=== PATIENT | male | born 1970 | race Caucasian/White ===

== ENCOUNTER 2019-09-24 22:27 | Inpatient (IN) ==
[2019-09-24] MEDS ORDERED: *HR* LORazepam 2 MG/ML VIAL IVP ONE ×2 (22:39→23:53)
[2019-09-24] MEDS ORDERED: 0.9 % Sodium Chloride 1,000 ML IVC ONE (22:40)
[2019-09-24 23:05] LABS: Basophils # 0.1 K/mcL (0.0-0.2); Basophils % 0.5 %; Hematocrit 46.9 % (37.5-50.1); Hemoglobin 16.7 g/dL (12.9-16.9); Immature Granulocytes % 0.3 % (0-4); Lymphocytes # 1.3 K/mcL (0.6-4.6); Lymphocytes % 13.7 %; Mean Corpuscular HGB Conc 35.6 g/dL (31.6-35.5); Mean Corpuscular Hemoglobin 32.9 pg (28.0-33.3); Mean Corpuscular Volume 92.3 fL (83.0-100.0); Mean Platelet Volume 8.6 fL (9.4-12.4); Monocytes # 0.6 K/mcL (0.0-1.3); Monocytes % 6.2 %; Neutrophils # 7.4 K/mcL (1.6-8.9); Platelet Count 214 K/mcL (140-400); Red Blood Count 5.08 M/mcL (4.19-5.50); Red Cell Distribution Width 12.5 % (11.5-14.5); Segmented Neutrophils % 79.3 %; White Blood Count 9.3 K/mcL (4.3-11.1)
[2019-09-24 23:27] LABS: Acetaminophen < 10 mcg/mL (10-20); Alanine Aminotransferase 36 Units/L (7-52); Albumin 4.4 g/dL (3.5-5.7); Albumin/Globulin Ratio 1.2 (1.1-2.2); Alkaline Phosphatase 79 Units/L (34-104); Aspartate Amino Transferase 64 Units/L (13-39); BUN/Creatinine Ratio 17 (6-26); Bilirubin,Direct 0.3 mg/dL (0.0-0.2); Bilirubin,Indirect 1.1 mg/dL (0.0-1.0); Bilirubin,Total 1.4 mg/dL (0.3-1.0); Blood Urea Nitrogen 15 mg/dL (6-20); Calcium 10.1 mg/dL (8.6-10.3); Carbon Dioxide 20 mEq/L (23-29); Chloride 101 mEq/L (98-107); Ethanol 153 mg/dL (Less than 10); Globulin 3.7 g/dL (2.4-3.5); Glucose 143 mg/dL (70-105); Lipase 63 Units/L (11-82); Osmolality,Calculated 283 (280-300); Potassium 3.5 mEq/L (3.5-5.1); Salicylate < 2.5 mg/dL (15.0-30.0); Sodium 135 mEq/L (136-145); Total Protein 8.1 g/dL (6.4-8.9); Troponin I < 0.03 ng/mL (< 0.04); eGFR For African Americans > 60 (> 60); eGFR For Non-African Americans > 60 (> 60)
[2019-09-24] MEDS ORDERED: GI Cocktail 40 ML EACH PO ONE (23:54)
[2019-09-25] MEDS ORDERED: Pantoprazole 40 MG VIAL IVP SCH (03:03)
[2019-09-25] MEDS: *HR* LORazepam 2 MG/ML VIAL IVP PRN ×6 (03:09→22:57)
[2019-09-25] MEDS ORDERED: Naloxone 0.4 MG/ML INJ IVP PRN (04:00)
[2019-09-25 06:03] LABS: Hematocrit 39.7 % (37.5-50.1); Mean Platelet Volume 8.8 fL (9.4-12.4); Red Cell Distribution Width 12.4 % (11.5-14.5)
[2019-09-25 06:04] LABS: Hemoglobin 14.4 g/dL (12.9-16.9); Mean Corpuscular HGB Conc 36.3 g/dL (31.6-35.5); Mean Corpuscular Volume 90.8 fL (83.0-100.0); Platelet Count 142 K/mcL (140-400); Red Blood Count 4.37 M/mcL (4.19-5.50); White Blood Count 7.9 K/mcL (4.3-11.1)
[2019-09-25 06:12] LABS: Prothrombin Time 11.3 Seconds (9.4-12.1)
[2019-09-25 06:24] LABS: Albumin 3.8 g/dL (3.5-5.7); Albumin/Globulin Ratio 1.4 (1.1-2.2); Bilirubin,Direct 0.2 mg/dL (0.0-0.2); Bilirubin,Indirect 1.1 mg/dL (0.0-1.0); Bilirubin,Total 1.3 mg/dL (0.3-1.0); Globulin 2.8 g/dL (2.4-3.5); Total Protein 6.6 g/dL (6.4-8.9)
[2019-09-25 06:25] LABS: Magnesium 1.8 mg/dL (1.6-2.6); Phosphorous 3.2 mg/dL (2.7-4.5)
[2019-09-25 06:26] LABS: BUN/Creatinine Ratio 21 (6-26); Blood Urea Nitrogen 17 mg/dL (6-20); Calcium 9.2 mg/dL (8.6-10.3); Carbon Dioxide 28 mEq/L (23-29); Chloride 97 mEq/L (98-107); Glucose 107 mg/dL (70-105); Osmolality,Calculated 286 (280-300); Potassium 3.2 mEq/L (3.5-5.1); Sodium 137 mEq/L (136-145); eGFR For African Americans > 60 (> 60); eGFR For Non-African Americans > 60 (> 60)
[2019-09-25] MEDS: 0.9 % Sodium Chloride 1,000 ML IVC SCH ×2 (08:05→10:22)
[2019-09-25 15:09] LABS: Amphetamine Screen,Urine Negative ng/mL (Cutoff=1000); Barbiturate Screen,Urine Negative ng/mL (Cutoff=200); Benzodiazepines Screen,Urine Negative ng/mL (Cutoff=200); Cannabinoid Screen,Urine Negative ng/mL (Cutoff = 50); Cocaine Screen,Urine Negative ng/mL (Cutoff= 300); Opiate Screen,Urine Negative ng/mL (Cutoff=300); Phencyclidine Screen,Urine Negative ng/mL (Cutoff=25)
[2019-09-25] MEDS: *HR* Labetalol 20 MG/4 ML SYRINGE IVP PRN (16:28)
[2019-09-25] MEDS ORDERED: Thiamine (B-1) 100 MG, Folic Acid 1 MG, MVI, adult with vitamin K 10 ML in 0.9 % Sodi... IVPB SCH (18:00)
[2019-09-25] MEDS ORDERED: Melatonin 3 MG TABLET PO SCH (21:00)
[2019-09-26] MEDS: *HR* LORazepam 2 MG/ML VIAL IVP PRN ×3 (00:07→08:21)
[2019-09-26] MEDS: *HR* Labetalol 20 MG/4 ML SYRINGE IVP PRN (02:24)
[2019-09-26] MEDS ORDERED: *HR* Labetalol 20 MG/4 ML SYRINGE IVP ONE (03:26)
[2019-09-26 04:48] VITALS: BP 145/101
[2019-09-26 05:40] LABS: Alanine Aminotransferase 29 Units/L (7-52); Albumin 3.7 g/dL (3.5-5.7); Albumin/Globulin Ratio 1.4 (1.1-2.2); Alkaline Phosphatase 64 Units/L (34-104); Aspartate Amino Transferase 53 Units/L (13-39); BUN/Creatinine Ratio 12 (6-26); Bilirubin,Total 1.8 mg/dL (0.3-1.0); Blood Urea Nitrogen 10 mg/dL (6-20); Calcium 8.4 mg/dL (8.6-10.3); Carbon Dioxide 23 mEq/L (23-29); Chloride 104 mEq/L (98-107); Globulin 2.6 g/dL (2.4-3.5); Glucose 93 mg/dL (70-105); Osmolality,Calculated 287 (280-300); Potassium 3.3 mEq/L (3.5-5.1); Sodium 139 mEq/L (136-145); Total Protein 6.3 g/dL (6.4-8.9); eGFR For African Americans > 60 (> 60); eGFR For Non-African Americans > 60 (> 60)
[2019-09-26] MEDS ORDERED: amLODIPine 5 MG TABLET PO SCH (09:00)
[2019-09-26] MEDS ORDERED: FLUoxetine 20 MG CAPSULE PO SCH (09:00)
[2019-09-26] MEDS ORDERED: NON-FORMULARY MEDICATION 1 EACH EACH (Omega-3 Fatty Acids [Fish Oil] 300 MG) PO SCH (09:00)
[2019-09-26] MEDS ORDERED: Topiramate 100 MG TABLET PO SCH (09:00)
[2019-09-28] MEDS ORDERED: Folic Acid 1 MG TABLET PO SCH (09:00)
[2019-09-28] MEDS ORDERED: Vitamin B Complex/Vit C/Vit E 1 EACH TABLET PO SCH (09:00)
[2019-09-28] MEDS ORDERED: Thiamine (B-1) 100 MG TABLET PO SCH (09:00)
== END 2019-09-26 11:18 | disposition left against medical advice (07) | DRG 894 ==
LOC: 3ANU 22:27 → EMEROOARM 22:27 → SUATTDRO 09-25 00:50 → 3ANU 09-25 01:21
PROVIDERS: ADMIT Internal Medicine; ATTEND Internal Medicine

== ENCOUNTER 2020-01-16 22:20 | Observation (INO) ==
[2020-01-16 23:08] LABS: Basophils # 0.1 K/mcL (0.0-0.2); Basophils % 0.8 %; Eosinophils % 0.2 %; Hemoglobin 16.4 g/dL (12.9-16.9); Immature Granulocytes % 0.3 % (0-4); Lymphocytes # 2.4 K/mcL (0.6-4.6); Lymphocytes % 37.3 %; Mean Corpuscular HGB Conc 34.9 g/dL (31.6-35.5); Mean Corpuscular Hemoglobin 31.3 pg (28.0-33.3); Mean Corpuscular Volume 89.7 fL (83.0-100.0); Mean Platelet Volume 8.2 fL (9.4-12.4); Monocytes # 0.5 K/mcL (0.0-1.3); Monocytes % 7.5 %; Neutrophils # 3.5 K/mcL (1.6-8.9); Platelet Count 161 K/mcL (140-400); Red Blood Count 5.24 M/mcL (4.19-5.50); Red Cell Distribution Width 12.2 % (11.5-14.5); Segmented Neutrophils % 53.9 %; White Blood Count 6.5 K/mcL (4.3-11.1)
[2020-01-16 23:18] LABS: Acetaminophen < 10 mcg/mL (10-20); BUN/Creatinine Ratio 23 (6-26); Blood Urea Nitrogen 18 mg/dL (6-20); Calcium 8.9 mg/dL (8.6-10.3); Carbon Dioxide 19 mEq/L (23-29); Chloride 99 mEq/L (98-107); Ethanol 375 mg/dL (Less than 10); Glucose 80 mg/dL (70-105); Osmolality,Calculated 295 (280-300); Salicylate < 2.5 mg/dL (15.0-30.0); Sodium 142 mEq/L (136-145); eGFR For African Americans > 60 (> 60); eGFR For Non-African Americans > 60 (> 60)
[2020-01-17] MEDS ORDERED: *HR* LORazepam 1 MG TABLET PO ONE (02:01)
[2020-01-17] MEDS ORDERED: *HR* LORazepam 2 MG/ML VIAL IVP ONE (02:11)
[2020-01-17] MEDS ORDERED: Thiamine (B-1) 100 MG in 0.9 % Sodium Chloride 50 ML IVPB ONE (02:24)
[2020-01-17] MEDS ORDERED: 0.9 % Sodium Chloride 1,000 ML IVC ONE (02:24)
[2020-01-17 05:06] LABS: Basophils % 0.5 %; Eosinophils % 0.3 %; Hematocrit 43.3 % (37.5-50.1); Hemoglobin 15.3 g/dL (12.9-16.9); Immature Granulocytes % 0.3 % (0-4); Lymphocytes # 1.8 K/mcL (0.6-4.6); Lymphocytes % 28.2 %; Mean Corpuscular HGB Conc 35.3 g/dL (31.6-35.5); Mean Corpuscular Hemoglobin 31.6 pg (28.0-33.3); Mean Corpuscular Volume 89.5 fL (83.0-100.0); Mean Platelet Volume 8.6 fL (9.4-12.4); Monocytes # 0.7 K/mcL (0.0-1.3); Neutrophils # 3.9 K/mcL (1.6-8.9); Platelet Count 140 K/mcL (140-400); Red Blood Count 4.84 M/mcL (4.19-5.50); Segmented Neutrophils % 60.7 %; White Blood Count 6.5 K/mcL (4.3-11.1)
[2020-01-17 05:27] LABS: Alanine Aminotransferase 55 Units/L (7-52); Albumin/Globulin Ratio 1.4 (1.1-2.2); Alkaline Phosphatase 64 Units/L (34-104); Aspartate Amino Transferase 73 Units/L (13-39); BUN/Creatinine Ratio 26 (6-26); Bilirubin,Total 1.2 mg/dL (0.3-1.0); Blood Urea Nitrogen 25 mg/dL (6-20); Carbon Dioxide 19 mEq/L (23-29); Chloride 97 mEq/L (98-107); Ethanol 190 mg/dL (Less than 10); Globulin 2.8 g/dL (2.4-3.5); Glucose 327 mg/dL (70-105); Magnesium 1.7 mg/dL (1.6-2.6); Osmolality,Calculated 297 (280-300); Phosphorous 1.6 mg/dL (2.7-4.5); Potassium 3.6 mEq/L (3.5-5.1); Sodium 135 mEq/L (136-145); Total Protein 6.8 g/dL (6.4-8.9); eGFR For African Americans > 60 (> 60); eGFR For Non-African Americans > 60 (> 60)
[2020-01-17] MEDS: 0.9 % Sodium Chloride 1,000 ML IVC SCH ×2 (05:40→12:04)
[2020-01-17] MEDS: Ondansetron 4 MG/2 ML VIAL IVP PRN ×2 (05:43→15:15)
[2020-01-17] MEDS: *HR* LORazepam 2 MG/ML VIAL IVP PRN ×8 (06:04→23:51)
[2020-01-17] MEDS: *HR* Enoxaparin 40 MG/0.4 ML SYRINGE SQ SCH (08:14)
[2020-01-17] MEDS ORDERED: Thiamine (B-1) 100 MG, Folic Acid 1 MG, MVI, adult with vitamin K 10 ML in 0.9 % Sodi... IVPB SCH (18:00)
[2020-01-18 04:15] LABS: BUN/Creatinine Ratio 26 (6-26); Blood Urea Nitrogen 19 mg/dL (6-20); Calcium 8.9 mg/dL (8.6-10.3); Carbon Dioxide 31 mEq/L (23-29); Chloride 104 mEq/L (98-107); Glucose 79 mg/dL (70-105); Magnesium 1.6 mg/dL (1.6-2.6); Osmolality,Calculated 291 (280-300); Potassium 3.9 mEq/L (3.5-5.1); Sodium 140 mEq/L (136-145); eGFR For African Americans > 60 (> 60); eGFR For Non-African Americans > 60 (> 60)
[2020-01-18 07:26] VITALS: BP 146/99
[2020-01-18] MEDS: *HR* Enoxaparin 40 MG/0.4 ML SYRINGE SQ SCH (08:24)
[2020-01-18] MEDS: *HR* LORazepam 2 MG/ML VIAL IVP PRN (08:25)
[2020-01-20] MEDS ORDERED: Folic Acid 1 MG TABLET PO SCH (09:00)
== END 2020-01-18 11:35 | disposition home or self-care (01) ==
LOC: 2NNU 22:20 → EMEROOARM 22:20 → 2NNU 01-17 02:37
PROVIDERS: ADMIT Student in an Organized Health Care Education/Training Program; ATTEND Student in an Organized Health Care Education/Training Program

== ENCOUNTER 2020-04-23 21:41 | Observation (INO) ==
[2020-04-23] MEDS ORDERED: 0.9 % Sodium Chloride 1,000 ML IVC ONE (21:49)
[2020-04-23] MEDS ORDERED: Thiamine (B-1) 100 MG in 0.9 % Sodium Chloride 50 ML IVPB STA (21:49)
[2020-04-23 22:18] LABS: Basophils % 0.8 %; Eosinophils # 0.1 K/mcL (0.0-0.6); Eosinophils % 1.2 %; Hematocrit 42.1 % (37.5-50.1); Immature Granulocytes % 0.2 % (0-4); Lymphocytes # 2.7 K/mcL (0.6-4.6); Lymphocytes % 52.6 %; Mean Corpuscular HGB Conc 35.6 g/dL (31.6-35.5); Mean Corpuscular Hemoglobin 32.1 pg (28.0-33.3); Mean Platelet Volume 7.8 fL (9.4-12.4); Monocytes # 0.7 K/mcL (0.0-1.3); Monocytes % 12.9 %; Neutrophils # 1.7 K/mcL (1.6-8.9); Platelet Count 363 K/mcL (140-400); Red Blood Count 4.68 M/mcL (4.19-5.50); Red Cell Distribution Width 12.3 % (11.5-14.5); Segmented Neutrophils % 32.3 %; White Blood Count 5.1 K/mcL (4.3-11.1)
[2020-04-23 22:28] LABS: Bilirubin,Urine Negative (Negative); Blood,Urine Trace-lysed (Negative); Clarity,Urine Clear (Clear); Color,Urine Yellow (Yellow); Glucose,Urine (UA) Normal (Normal); Ketones,Urine 40 mg/dL (Negative); Leukocyte Esterase,Urine Negative (Negative); Nitrite,Urine Negative (Negative); PH,Urine 6.5 pH Units (5.0-8.0); Protein,Urine 30 mg/dL (Neg-Trace); Specific Gravity,Urine 1.015 (1.010-1.025); Urobilinogen,Urine Normal (Normal)
[2020-04-23 22:36] LABS: Alanine Aminotransferase 138 Units/L (7-52); Albumin 4.4 g/dL (3.5-5.7); Albumin/Globulin Ratio 1.5 (1.1-2.2); Alkaline Phosphatase 72 Units/L (34-104); Aspartate Amino Transferase 122 Units/L (13-39); BUN/Creatinine Ratio 16 (6-26); Bilirubin,Total 0.9 mg/dL (0.3-1.0); Blood Urea Nitrogen 14 mg/dL (6-20); Calcium 8.3 mg/dL (8.6-10.3); Carbon Dioxide 20 mEq/L (23-29); Chloride 101 mEq/L (98-107); Ethanol 419 mg/dL (Less than 10); Glucose 81 mg/dL (70-105); Osmolality,Calculated 292 (280-300); Potassium 3.9 mEq/L (3.5-5.1); Sodium 141 mEq/L (136-145); Total Protein 7.4 g/dL (6.4-8.9); eGFR For African Americans > 60 (> 60); eGFR For Non-African Americans > 60 (> 60)
[2020-04-23 22:38] LABS: Amphetamine Screen,Urine Negative ng/mL (Cutoff=1000); Barbiturate Screen,Urine Negative ng/mL (Cutoff=200); Benzodiazepines Screen,Urine Negative ng/mL (Cutoff=200); Cannabinoid Screen,Urine Negative ng/mL (Cutoff = 50); Cocaine Screen,Urine Negative ng/mL (Cutoff= 300); Opiate Screen,Urine Negative ng/mL (Cutoff=300); Phencyclidine Screen,Urine Negative ng/mL (Cutoff=25)
[2020-04-23] MEDS ORDERED: *HR* LORazepam 2 MG/ML VIAL IVP ONE (23:13)
[2020-04-24] MEDS ORDERED: *HR* LORazepam 2 MG/ML VIAL IVP PRN ×2 (01:40)
[2020-04-24] MEDS ORDERED: Acetaminophen/Aspirin/Caffeine TABLET PO PRN (04:44)
[2020-04-24] MEDS: BuPROPion XL (24 HR) 150 MG TABLET PO SCH (05:54)
[2020-04-24] MEDS: FLUoxetine 20 MG CAPSULE PO SCH (08:00)
[2020-04-24] MEDS: (Omega-3/Dha/Epa/Fish Oil [Fish Oil 1,000 Mg Softgel]) PO SCH (08:00)
[2020-04-24] MEDS: amLODIPine 5 MG TABLET PO SCH (08:00)
[2020-04-24] MEDS: Topiramate 25 MG TABLET PO SCH (08:00)
[2020-04-24] MEDS: hydroCHLOROthiazide 25 MG TABLET PO SCH (08:00)
[2020-04-24] MEDS: Multivit/Ca/Min/Fe/FA 1 TAB TABLET PO SCH (08:00)
[2020-04-24] MEDS: lisinopriL 10 MG TABLET PO SCH (08:00)
[2020-04-24] MEDS ORDERED: hydrOXYzine pamoate 25 MG CAPSULE PO PRN (09:17)
[2020-04-24] MEDS ORDERED: Thiamine (B-1) 100 MG, Folic Acid 1 MG, MVI, adult with vitamin K 10 ML in 0.9 % Sodi... IVPB SCH (18:00)
[2020-04-24] MEDS: *HR* LORazepam 2 MG/ML VIAL IVP PRN (18:59)
[2020-04-24] MEDS ORDERED: *HR* LORazepam 2 MG/ML VIAL IVP ONE (20:24)
[2020-04-24] MEDS ORDERED: Topiramate 100 MG TABLET PO SCH (21:00)
[2020-04-24] MEDS ORDERED: traZODone 50 MG TABLET PO SCH (21:00)
[2020-04-24] MEDS ORDERED: Melatonin 3 MG TABLET PO SCH (21:00)
[2020-04-25] MEDS: *HR* LORazepam 2 MG/ML VIAL IVP PRN ×2 (03:29→08:22)
[2020-04-25] MEDS: BuPROPion XL (24 HR) 150 MG TABLET PO SCH (05:26)
[2020-04-25] MEDS ORDERED: *HR* Heparin 5,000 UNIT/ML VIAL SQ SCH (06:00)
[2020-04-25] MEDS: lisinopriL 10 MG TABLET PO SCH (08:19)
[2020-04-25] MEDS: FLUoxetine 20 MG CAPSULE PO SCH (08:19)
[2020-04-25] MEDS: hydroCHLOROthiazide 25 MG TABLET PO SCH (08:19)
[2020-04-25] MEDS: Topiramate 25 MG TABLET PO SCH (08:20)
[2020-04-25] MEDS: amLODIPine 5 MG TABLET PO SCH (08:20)
[2020-04-25] MEDS: Multivit/Ca/Min/Fe/FA 1 TAB TABLET PO SCH (08:20)
[2020-04-25] MEDS: (Omega-3/Dha/Epa/Fish Oil [Fish Oil 1,000 Mg Softgel]) PO SCH (10:14)
[2020-04-25 10:44] VITALS: BP 127/86
== END 2020-04-25 13:24 | disposition other institution (70) ==
LOC: EMEROOARM 21:41 → 3BNU 21:41 → SUATTDRO 04-24 00:20 → 3BNU 04-24 00:38
PROVIDERS: ADMIT Internal Medicine; ATTEND Internal Medicine

== ENCOUNTER 2020-10-15 19:26 | Inpatient (IN) ==
[2020-10-15 20:24] LABS: Basophils % 0.3 %; Eosinophils % 0.2 %; Hemoglobin 12.4 g/dL (12.9-16.9); Immature Granulocytes % 0.2 % (0-4); Lymphocytes # 0.9 K/mcL (0.6-4.6); Mean Corpuscular HGB Conc 35.4 g/dL (31.6-35.5); Mean Corpuscular Hemoglobin 32.5 pg (28.0-33.3); Mean Corpuscular Volume 91.9 fL (83.0-100.0); Mean Platelet Volume 8.7 fL (9.4-12.4); Monocytes # 0.4 K/mcL (0.0-1.3); Monocytes % 6.2 %; Neutrophils # 4.6 K/mcL (1.6-8.9); Platelet Count 130 K/mcL (140-400); Red Blood Count 3.81 M/mcL (4.19-5.50); Red Cell Distribution Width 13.8 % (11.5-14.5); Segmented Neutrophils % 78.1 %; White Blood Count 5.9 K/mcL (4.3-11.1)
[2020-10-15 20:33] LABS: Prothrombin Time 11.3 Seconds (9.4-12.1)
[2020-10-15 20:46] LABS: Alanine Aminotransferase 155 Units/L (7-52); Albumin 3.8 g/dL (3.5-5.7); Albumin/Globulin Ratio 1.5 (1.1-2.2); Alkaline Phosphatase 63 Units/L (34-104); Aspartate Amino Transferase 141 Units/L (13-39); BUN/Creatinine Ratio 38 (6-26); Blood Urea Nitrogen 18 mg/dL (6-20); Calcium 8.2 mg/dL (8.6-10.3); Carbon Dioxide 23 mEq/L (23-29); Chloride 103 mEq/L (98-107); Ethanol 104 mg/dL (Less than 10); Globulin 2.6 g/dL (2.4-3.5); Glucose 104 mg/dL (70-105); Osmolality,Calculated 290 (280-300); Potassium 3.4 mEq/L (3.5-5.1); Sodium 139 mEq/L (136-145); Total Protein 6.4 g/dL (6.4-8.9); eGFR For African Americans > 60 (> 60); eGFR For Non-African Americans > 60 (> 60)
[2020-10-15] MEDS ORDERED: *HR* LORazepam 2 MG/ML VIAL IVP ONE (21:31)
[2020-10-15] MEDS ORDERED: Acetaminophen 325 MG TABLET PO PRN (21:38)
[2020-10-15] MEDS ORDERED: Naloxone 0.4 MG/ML INJ IVP PRN (21:38)
[2020-10-15] MEDS ORDERED: Ondansetron 4 MG/2 ML VIAL IVP PRN (21:38)
[2020-10-15] MEDS ORDERED: *HR* LORazepam 2 MG/ML VIAL IVP PRN ×2 (21:40)
[2020-10-16] MEDS: *HR* LORazepam 2 MG/ML VIAL IVP PRN ×3 (02:16→14:01)
[2020-10-16 06:54] LABS: Eosinophils % 0.2 %; Immature Granulocytes % 0.4 % (0-4); Mean Corpuscular Volume 90.9 fL (83.0-100.0); Red Cell Distribution Width 13.7 % (11.5-14.5)
[2020-10-16 06:56] LABS: Basophils % 0.6 %; Hematocrit 35.1 % (37.5-50.1); Hemoglobin 12.1 g/dL (12.9-16.9); Immature Platelets 1.6 % (1.1-6.1); Lymphocytes % 21.1 %; Mean Corpuscular HGB Conc 34.5 g/dL (31.6-35.5); Mean Corpuscular Hemoglobin 31.3 pg (28.0-33.3); Monocytes # 0.4 K/mcL (0.0-1.3); Monocytes % 8.6 %; Neutrophils # 3.3 K/mcL (1.6-8.9); Platelet Count 114 K/mcL (140-400); Red Blood Count 3.86 M/mcL (4.19-5.50); Segmented Neutrophils % 69.1 %; White Blood Count 4.7 K/mcL (4.3-11.1)
[2020-10-16 06:58] LABS: Prothrombin Time 11.5 Seconds (9.4-12.1)
[2020-10-16 07:00] LABS: Activated Partial Thrombo Time 27.3 Seconds (26.0-36.0)
[2020-10-16 07:36] LABS: Alanine Aminotransferase 132 Units/L (7-52); Albumin 3.7 g/dL (3.5-5.7); Albumin/Globulin Ratio 1.4 (1.1-2.2); Alkaline Phosphatase 61 Units/L (34-104); Aspartate Amino Transferase 118 Units/L (13-39); BUN/Creatinine Ratio 31 (6-26); Bilirubin,Total 1.9 mg/dL (0.3-1.0); Blood Urea Nitrogen 18 mg/dL (6-20); Calcium 9.1 mg/dL (8.6-10.3); Carbon Dioxide 28 mEq/L (23-29); Chloride 103 mEq/L (98-107); Globulin 2.6 g/dL (2.4-3.5); Glucose 84 mg/dL (70-105); Osmolality,Calculated 293 (280-300); Potassium 3.7 mEq/L (3.5-5.1); Sodium 141 mEq/L (136-145); Total Protein 6.3 g/dL (6.4-8.9); eGFR For African Americans > 60 (> 60); eGFR For Non-African Americans > 60 (> 60)
[2020-10-16] MEDS ORDERED: cefTRIAXone 2,000 MG in 0.9 % Sodium Chloride Mini Bag 100 ML IVPB SCH (08:00)
[2020-10-16] MEDS: cefTRIAXone 2,000 MG in Water for inj. (sterile) 20 ML IVP SCH (08:51)
[2020-10-16] MEDS: MetroNIDAZOLE 500 MG/100 ML 500 MG/100 ML BAG IVPB SCH ×2 (08:52→16:15)
[2020-10-16 15:54] LABS: % Iron Saturation 50 % (20-55); Iron 139 mcg/dL (65-175); Transferrin 199 mg/dL (203-362)
[2020-10-16 16:07] LABS: Ferritin 222 ng/mL (20-250)
[2020-10-16 16:25] LABS: Hepatitis B Surface Antigen Nonreactive (Nonreactive)
[2020-10-16 16:54] LABS: Hepatitis C Virus Antibody Nonreactive (Nonreactive)
[2020-10-16 16:55] LABS: Hepatitis B Core IgM Nonreactive (Nonreactive)
[2020-10-16 16:57] LABS: Hepatitis A Antibody IgM Nonreactive (Nonreactive)
[2020-10-16] MEDS ORDERED: SODIUM CHLORIDE/NAHCO3/KCL/PEG 4,000 ML SOLN.RECON PO ONE (17:00)
[2020-10-16] MEDS ORDERED: Thiamine (B-1) 100 MG, Folic Acid 1 MG, MVI, adult with vitamin K 10 ML in 0.9 % Sodi... IVPB SCH (18:00)
[2020-10-17] MEDS: lisinopriL 20 MG TABLET PO SCH ×2 (00:19→08:48)
[2020-10-17] MEDS: MetroNIDAZOLE 500 MG/100 ML 500 MG/100 ML BAG IVPB SCH ×2 (00:20→08:58)
[2020-10-17] MEDS: *HR* LORazepam 2 MG/ML VIAL IVP PRN ×2 (04:40→08:55)
[2020-10-17 06:22] LABS: Red Cell Distribution Width 13.8 % (11.5-14.5)
[2020-10-17 06:24] LABS: Hemoglobin 11.9 g/dL (12.9-16.9); Immature Platelets 2.5 % (1.1-6.1); Mean Corpuscular Volume 91.1 fL (83.0-100.0); Mean Platelet Volume 9.3 fL (9.4-12.4); Red Blood Count 3.84 M/mcL (4.19-5.50); White Blood Count 4.8 K/mcL (4.3-11.1)
[2020-10-17 06:43] LABS: BUN/Creatinine Ratio 15 (6-26); Blood Urea Nitrogen 9 mg/dL (6-20); Calcium 8.8 mg/dL (8.6-10.3); Carbon Dioxide 25 mEq/L (23-29); Chloride 107 mEq/L (98-107); Glucose 80 mg/dL (70-105); Osmolality,Calculated 286 (280-300); Potassium 3.6 mEq/L (3.5-5.1); Sodium 139 mEq/L (136-145); eGFR For African Americans > 60 (> 60); eGFR For Non-African Americans > 60 (> 60)
[2020-10-17] MEDS: Topiramate 25 MG TABLET PO SCH (08:48)
[2020-10-17] MEDS: FLUoxetine 20 MG CAPSULE PO SCH (08:48)
[2020-10-17] MEDS: cefTRIAXone 2,000 MG in Water for inj. (sterile) 20 ML IVP SCH (08:56)
[2020-10-17] MEDS ORDERED: Lidocaine -MPF 2% 5 ML VIAL SQ ONE (11:25)
[2020-10-17] MEDS ORDERED: *HR* Propofol 500 MG/50 ML BOTTLE IVP ONE (11:25)
[2020-10-17] MEDS ORDERED: *HR* Propofol 200 MG/20 ML VIAL IVP ONE (11:25)
[2020-10-17] MEDS ORDERED: *HR* Midazolam HCl 5 MG/5 ML VIAL IVP ONE ×2 (13:10→13:11)
[2020-10-17] MEDS ORDERED: traZODone 50 MG TABLET PO SCH (21:00)
[2020-10-17] MEDS ORDERED: Topiramate 100 MG TABLET PO SCH (21:00)
[2020-10-18] MEDS: *HR* LORazepam 2 MG/ML VIAL IVP PRN ×2 (04:10→08:52)
[2020-10-18 05:36] LABS: Hemoglobin 12.6 g/dL (12.9-16.9); Mean Corpuscular Hemoglobin 32.3 pg (28.0-33.3); Mean Corpuscular Volume 92.3 fL (83.0-100.0); Mean Platelet Volume 9.8 fL (9.4-12.4); Platelet Count 104 K/mcL (140-400); White Blood Count 3.6 K/mcL (4.3-11.1)
[2020-10-18 06:56] VITALS: BP 133/85
[2020-10-18] MEDS: lisinopriL 20 MG TABLET PO SCH (08:38)
[2020-10-18] MEDS: FLUoxetine 20 MG CAPSULE PO SCH (08:39)
[2020-10-18] MEDS: Topiramate 25 MG TABLET PO SCH (08:39)
[2020-10-18] MEDS ORDERED: Thiamine (B-1) 100 MG TABLET PO SCH (09:00)
[2020-10-18] MEDS ORDERED: Folic Acid 1 MG TABLET PO SCH (09:00)
[2020-10-19 12:48] LABS: AFP Tumor Marker Non-Pregnant 3 ng/mL (0-9)
[2020-10-19 12:49] LABS: Serine Protease-3 Antibody 6 AU/mL (0-19)
[2020-10-20 00:53] LABS: ANA IgG by ELISA NONE DETECTED (None Detected); F-Actin (sm muscle) Ab IgG 9 Units (0-19)
== END 2020-10-18 11:26 | disposition home or self-care (01) | DRG 379 ==
LOC: 3BNU 19:26 → EMEROOARM 19:26 → 3BNU 22:53
PROVIDERS: ADMIT Family Medicine; ATTEND Family Medicine

== ENCOUNTER 2020-11-21 11:23 | Inpatient (IN) ==
[2020-11-21] MEDS ORDERED: 0.9 % Sodium Chloride 1,000 ML IVC ONE (11:36)
[2020-11-21] MEDS ORDERED: Ondansetron 4 MG/2 ML VIAL IVP ONE (11:36)
[2020-11-21] MEDS ORDERED: *HR* LORazepam 2 MG/ML VIAL IVP ONE ×2 (11:37→14:31)
[2020-11-21] MEDS ORDERED: Isovue-370 500 ML BOTTLE IVP ONE (11:59)
[2020-11-21] MEDS: Thiamine (B-1) 100 MG TABLET PO SCH (12:10)
[2020-11-21] MEDS: Multivit/Ca/Min/Fe/FA 1 TAB TABLET PO SCH (12:10)
[2020-11-21 12:26] LABS: Hematocrit 39.5 % (37.5-50.1); Hemoglobin 13.7 g/dL (12.9-16.9); Mean Corpuscular HGB Conc 34.7 g/dL (31.6-35.5); Red Cell Distribution Width 12.9 % (11.5-14.5)
[2020-11-21 12:27] LABS: Basophils % 0.6 %; Eosinophils % 0.3 %; Immature Granulocytes % 0.6 % (0-4); Immature Platelets 2.2 % (1.1-6.1); Lymphocytes # 0.6 K/mcL (0.6-4.6); Mean Corpuscular Hemoglobin 32.2 pg (28.0-33.3); Mean Corpuscular Volume 92.9 fL (83.0-100.0); Mean Platelet Volume 9.3 fL (9.4-12.4); Monocytes # 0.4 K/mcL (0.0-1.3); Monocytes % 13.2 %; Neutrophils # 2.2 K/mcL (1.6-8.9); Red Blood Count 4.25 M/mcL (4.19-5.50); Segmented Neutrophils % 67.3 %; White Blood Count 3.3 K/mcL (4.3-11.1)
[2020-11-21 12:29] LABS: Platelet Count 93 K/mcL (140-400)
[2020-11-21 12:31] LABS: INR 0.9; Prothrombin Time 10.8 Seconds (9.4-12.1)
[2020-11-21] MEDS ORDERED: Pantoprazole 40 MG VIAL IVP ONE (13:12)
[2020-11-21 13:15] LABS: Alanine Aminotransferase 207 Units/L (7-52); Albumin/Globulin Ratio 1.4 (1.1-2.2); Alkaline Phosphatase 76 Units/L (34-104); Aspartate Amino Transferase 332 Units/L (13-39); BUN/Creatinine Ratio 11 (6-26); Bilirubin,Direct 0.3 mg/dL (0.0-0.2); Bilirubin,Indirect 0.7 mg/dL (0.0-1.0); Blood Urea Nitrogen 7 mg/dL (6-20); Calcium 8.8 mg/dL (8.6-10.3); Carbon Dioxide 20 mEq/L (23-29); Chloride 100 mEq/L (98-107); Ethanol 174 mg/dL (Less than 10); Globulin 2.8 g/dL (2.4-3.5); Glucose 98 mg/dL (70-105); Lipase 71 Units/L (11-82); Osmolality,Calculated 280 (280-300); Potassium 3.8 mEq/L (3.5-5.1); Sodium 136 mEq/L (136-145); Total Protein 6.8 g/dL (6.4-8.9); Troponin I < 0.03 ng/mL (< 0.04); eGFR For African Americans > 60 (> 60); eGFR For Non-African Americans > 60 (> 60)
[2020-11-21 13:56] LABS: Bilirubin,Urine Negative (Negative); Blood,Urine Trace (Negative); Clarity,Urine Clear (Clear); Color,Urine Light-Yellow (Yellow); Glucose,Urine (UA) Normal (Normal); Ketones,Urine Negative (Negative); Leukocyte Esterase,Urine Negative (Negative); Mucus,Urine Few per lpf (None-Few); Nitrite,Urine Negative (Negative); Protein,Urine Trace mg/dL (Neg-Trace); RBC,Urine 0-3 per hpf (0-3); Specific Gravity,Urine 1.008 (1.010-1.025); Urobilinogen,Urine Normal (Normal); WBC,Urine 0-3 per hpf (0-3)
[2020-11-21 14:09] LABS: Amphetamine Screen,Urine Negative ng/mL (Cutoff=1000); Barbiturate Screen,Urine Negative ng/mL (Cutoff=200); Benzodiazepines Screen,Urine Negative ng/mL (Cutoff=200); Cannabinoid Screen,Urine Negative ng/mL (Cutoff = 50); Cocaine Screen,Urine Negative ng/mL (Cutoff= 300); Opiate Screen,Urine Negative ng/mL (Cutoff=300); Phencyclidine Screen,Urine Negative ng/mL (Cutoff=25)
[2020-11-21] MEDS ORDERED: *HR* LORazepam 2 MG/ML VIAL ONE (14:33)
[2020-11-21] MEDS ORDERED: Naloxone 0.4 MG/ML INJ IVP PRN (15:43)
[2020-11-21] MEDS ORDERED: *HR* LORazepam 2 MG/ML VIAL IVP PRN (15:47)
[2020-11-21] MEDS ORDERED: Ondansetron 4 MG/2 ML VIAL IVP PRN (17:00)
[2020-11-21] MEDS: 0.9 % Sodium Chloride 1,000 ML IVC SCH (17:31)
[2020-11-21] MEDS: *HR* LORazepam 2 MG/ML VIAL IVP PRN ×3 (17:43→23:51)
[2020-11-22] MEDS: 0.9 % Sodium Chloride 1,000 ML IVC SCH (01:46)
[2020-11-22 02:12] LABS: Hematocrit 38.5 % (37.5-50.1); Hemoglobin 13.2 g/dL (12.9-16.9); Mean Corpuscular HGB Conc 34.3 g/dL (31.6-35.5); Mean Corpuscular Hemoglobin 31.9 pg (28.0-33.3); Mean Platelet Volume 9.5 fL (9.4-12.4); Red Blood Count 4.14 M/mcL (4.19-5.50); Red Cell Distribution Width 12.9 % (11.5-14.5)
[2020-11-22 02:13] LABS: Platelet Count 66 K/mcL (140-400)
[2020-11-22 02:30] LABS: Alanine Aminotransferase 163 Units/L (7-52); Albumin 3.6 g/dL (3.5-5.7); Albumin/Globulin Ratio 1.4 (1.1-2.2); Alkaline Phosphatase 70 Units/L (34-104); Aspartate Amino Transferase 226 Units/L (13-39); BUN/Creatinine Ratio 12 (6-26); Bilirubin,Total 1.7 mg/dL (0.3-1.0); Blood Urea Nitrogen 7 mg/dL (6-20); Calcium 8.6 mg/dL (8.6-10.3); Carbon Dioxide 25 mEq/L (23-29); Chloride 103 mEq/L (98-107); Globulin 2.6 g/dL (2.4-3.5); Glucose 84 mg/dL (70-105); Magnesium 1.8 mg/dL (1.6-2.6); Osmolality,Calculated 283 (280-300); Potassium 3.8 mEq/L (3.5-5.1); Sodium 138 mEq/L (136-145); Total Protein 6.2 g/dL (6.4-8.9); eGFR For African Americans > 60 (> 60); eGFR For Non-African Americans > 60 (> 60)
[2020-11-22] MEDS: *HR* LORazepam 2 MG/ML VIAL IVP PRN ×4 (03:34→16:05)
[2020-11-22] MEDS: *HR* Enoxaparin 40 MG/0.4 ML SYRINGE SQ SCH (05:56)
[2020-11-22] MEDS: Multivit/Ca/Min/Fe/FA 1 TAB TABLET PO SCH (08:50)
[2020-11-22] MEDS: Thiamine (B-1) 100 MG TABLET PO SCH (08:50)
[2020-11-22] MEDS: Vitamin B Complex/Vit C/Vit E 1 EACH TABLET PO SCH (08:51)
[2020-11-22] MEDS ORDERED: *HR* LORazepam 2 MG/ML VIAL IVP PRN (10:57)
[2020-11-22] MEDS: amLODIPine 5 MG TABLET PO SCH (12:12)
[2020-11-22] MEDS: FLUoxetine 20 MG CAPSULE PO SCH (12:12)
[2020-11-22] MEDS: *HR* Labetalol 20 MG/4 ML SYRINGE IVP PRN (17:31)
[2020-11-23] MEDS: *HR* LORazepam 2 MG/ML VIAL IVP PRN ×3 (00:14→12:05)
[2020-11-23] MEDS: *HR* Labetalol 20 MG/4 ML SYRINGE IVP PRN (03:53)
[2020-11-23] MEDS: *HR* Enoxaparin 40 MG/0.4 ML SYRINGE SQ SCH (05:29)
[2020-11-23 06:45] LABS: Hematocrit 41.8 % (37.5-50.1); Mean Platelet Volume 9.6 fL (9.4-12.4)
[2020-11-23 06:47] LABS: Hemoglobin 14.2 g/dL (12.9-16.9); Immature Platelets 3.6 % (1.1-6.1); Mean Corpuscular Hemoglobin 31.6 pg (28.0-33.3); Mean Corpuscular Volume 93.1 fL (83.0-100.0); Red Blood Count 4.49 M/mcL (4.19-5.50); Red Cell Distribution Width 12.5 % (11.5-14.5); White Blood Count 3.8 K/mcL (4.3-11.1)
[2020-11-23 06:56] LABS: Prothrombin Time 11.3 Seconds (9.4-12.1)
[2020-11-23 07:14] LABS: Alanine Aminotransferase 125 Units/L (7-52); Albumin 3.9 g/dL (3.5-5.7); Albumin/Globulin Ratio 1.4 (1.1-2.2); Alkaline Phosphatase 70 Units/L (34-104); Aspartate Amino Transferase 136 Units/L (13-39); BUN/Creatinine Ratio 11 (6-26); Bilirubin,Direct 0.4 mg/dL (0.0-0.2); Bilirubin,Indirect 1.2 mg/dL (0.0-1.0); Bilirubin,Total 1.6 mg/dL (0.3-1.0); Blood Urea Nitrogen 7 mg/dL (6-20); Calcium 9.3 mg/dL (8.6-10.3); Carbon Dioxide 23 mEq/L (23-29); Chloride 105 mEq/L (98-107); Globulin 2.7 g/dL (2.4-3.5); Glucose 88 mg/dL (70-105); Osmolality,Calculated 285 (280-300); Potassium 3.6 mEq/L (3.5-5.1); Sodium 139 mEq/L (136-145); Total Protein 6.6 g/dL (6.4-8.9); eGFR For African Americans > 60 (> 60); eGFR For Non-African Americans > 60 (> 60)
[2020-11-23] MEDS: Thiamine (B-1) 100 MG TABLET PO SCH (07:50)
[2020-11-23] MEDS: Vitamin B Complex/Vit C/Vit E 1 EACH TABLET PO SCH (07:50)
[2020-11-23] MEDS: amLODIPine 5 MG TABLET PO SCH (07:50)
[2020-11-23] MEDS: Multivit/Ca/Min/Fe/FA 1 TAB TABLET PO SCH (07:50)
[2020-11-23] MEDS: FLUoxetine 20 MG CAPSULE PO SCH (07:51)
[2020-11-24] MEDS: *HR* Enoxaparin 40 MG/0.4 ML SYRINGE SQ SCH (05:20)
[2020-11-24] MEDS: *HR* LORazepam 2 MG/ML VIAL IVP PRN ×2 (07:35→13:42)
[2020-11-24] MEDS: Vitamin B Complex/Vit C/Vit E 1 EACH TABLET PO SCH (07:35)
[2020-11-24] MEDS: Thiamine (B-1) 100 MG TABLET PO SCH (07:35)
[2020-11-24] MEDS: amLODIPine 5 MG TABLET PO SCH (07:35)
[2020-11-24] MEDS: Multivit/Ca/Min/Fe/FA 1 TAB TABLET PO SCH (07:35)
[2020-11-24] MEDS: FLUoxetine 20 MG CAPSULE PO SCH (07:36)
[2020-11-25] MEDS: *HR* LORazepam 2 MG/ML VIAL IVP PRN ×4 (01:31→20:00)
[2020-11-25 02:40] LABS: Hematocrit 42.6 % (37.5-50.1); Hemoglobin 14.2 g/dL (12.9-16.9); Mean Corpuscular HGB Conc 33.3 g/dL (31.6-35.5); Mean Corpuscular Hemoglobin 31.7 pg (28.0-33.3); Mean Corpuscular Volume 95.1 fL (83.0-100.0); Mean Platelet Volume 9.7 fL (9.4-12.4); Platelet Count 132 K/mcL (140-400); Red Blood Count 4.48 M/mcL (4.19-5.50); Red Cell Distribution Width 12.5 % (11.5-14.5); White Blood Count 3.9 K/mcL (4.3-11.1)
[2020-11-25 02:54] LABS: BUN/Creatinine Ratio 18 (6-26); Blood Urea Nitrogen 12 mg/dL (6-20); Calcium 9.3 mg/dL (8.6-10.3); Carbon Dioxide 24 mEq/L (23-29); Chloride 106 mEq/L (98-107); Glucose 88 mg/dL (70-105); Osmolality,Calculated 287 (280-300); Sodium 139 mEq/L (136-145); eGFR For African Americans > 60 (> 60); eGFR For Non-African Americans > 60 (> 60)
[2020-11-25] MEDS: *HR* Enoxaparin 40 MG/0.4 ML SYRINGE SQ SCH (05:15)
[2020-11-25] MEDS: Thiamine (B-1) 100 MG TABLET PO SCH (08:14)
[2020-11-25] MEDS: Multivit/Ca/Min/Fe/FA 1 TAB TABLET PO SCH (08:14)
[2020-11-25] MEDS: Vitamin B Complex/Vit C/Vit E 1 EACH TABLET PO SCH (08:14)
[2020-11-25] MEDS: FLUoxetine 20 MG CAPSULE PO SCH (08:15)
[2020-11-25] MEDS: amLODIPine 5 MG TABLET PO SCH (08:15)
[2020-11-26] MEDS: *HR* LORazepam 2 MG/ML VIAL IVP PRN ×5 (03:27→18:20)
[2020-11-26] MEDS: *HR* Enoxaparin 40 MG/0.4 ML SYRINGE SQ SCH (05:47)
[2020-11-26] MEDS: FLUoxetine 20 MG CAPSULE PO SCH (07:42)
[2020-11-26] MEDS: amLODIPine 5 MG TABLET PO SCH (07:42)
[2020-11-26] MEDS: Multivit/Ca/Min/Fe/FA 1 TAB TABLET PO SCH (07:42)
[2020-11-26] MEDS: Vitamin B Complex/Vit C/Vit E 1 EACH TABLET PO SCH (07:42)
[2020-11-26] MEDS: Thiamine (B-1) 100 MG TABLET PO SCH (07:42)
[2020-11-27] MEDS: *HR* LORazepam 2 MG/ML VIAL IVP PRN ×3 (04:21→13:01)
[2020-11-27] MEDS: *HR* Enoxaparin 40 MG/0.4 ML SYRINGE SQ SCH (05:37)
[2020-11-27] MEDS: Multivit/Ca/Min/Fe/FA 1 TAB TABLET PO SCH (08:35)
[2020-11-27] MEDS: Vitamin B Complex/Vit C/Vit E 1 EACH TABLET PO SCH (08:35)
[2020-11-27] MEDS: Thiamine (B-1) 100 MG TABLET PO SCH (08:36)
[2020-11-27] MEDS: amLODIPine 5 MG TABLET PO SCH (08:36)
[2020-11-27] MEDS: FLUoxetine 20 MG CAPSULE PO SCH (08:36)
[2020-11-27] MEDS ORDERED: Topiramate 100 MG TABLET PO SCH (21:00)
[2020-11-28] MEDS: *HR* Enoxaparin 40 MG/0.4 ML SYRINGE SQ SCH (06:12)
[2020-11-28] MEDS ORDERED: Topiramate 25 MG TABLET PO SCH (09:00)
[2020-11-28 09:13] LABS: Alanine Aminotransferase 79 Units/L (7-52); Albumin/Globulin Ratio 1.4 (1.1-2.2); Alkaline Phosphatase 52 Units/L (34-104); Aspartate Amino Transferase 57 Units/L (13-39); BUN/Creatinine Ratio 10 (6-26); Blood Urea Nitrogen 8 mg/dL (6-20); Calcium 9.3 mg/dL (8.6-10.3); Carbon Dioxide 22 mEq/L (23-29); Chloride 107 mEq/L (98-107); Globulin 2.9 g/dL (2.4-3.5); Glucose 128 mg/dL (70-105); Osmolality,Calculated 288 (280-300); Phosphorous 3.3 mg/dL (2.7-4.5); Potassium 3.6 mEq/L (3.5-5.1); Sodium 139 mEq/L (136-145); Total Protein 6.9 g/dL (6.4-8.9); eGFR For African Americans > 60 (> 60); eGFR For Non-African Americans > 60 (> 60)
[2020-11-28 09:22] LABS: Magnesium 1.9 mg/dL (1.6-2.6)
[2020-11-28] MEDS: Vitamin B Complex/Vit C/Vit E 1 EACH TABLET PO SCH (09:58)
[2020-11-28] MEDS: FLUoxetine 20 MG CAPSULE PO SCH (09:58)
[2020-11-28] MEDS: Thiamine (B-1) 100 MG TABLET PO SCH (09:58)
[2020-11-28] MEDS: Multivit/Ca/Min/Fe/FA 1 TAB TABLET PO SCH (09:58)
[2020-11-28] MEDS: amLODIPine 5 MG TABLET PO SCH (09:58)
[2020-11-28 10:49] VITALS: BP 129/92
== END 2020-11-28 14:30 | disposition home or self-care (01) ==
LOC: 3BNU 11:23 → EMEROOARM 11:23 → 3BNU 16:15 → SUATTDRO 11-23 15:41
PROVIDERS: ADMIT Internal Medicine; ATTEND Internal Medicine

== ENCOUNTER 2021-02-26 19:40 | Observation (INO) ==
[2021-02-26] MEDS ORDERED: 0.9 % Sodium Chloride 1,000 ML IVC ONE (19:41)
[2021-02-26] MEDS ORDERED: *HR* LORazepam 2 MG/ML VIAL IVP ONE ×2 (19:41→22:04)
[2021-02-26] MEDS ORDERED: 0.9 % Sodium Chloride 1,000 ML ONE ×2 (19:43→20:54)
[2021-02-26] MEDS ORDERED: Thiamine (B-1) 100 MG in 0.9 % Sodium Chloride 50 ML IVPB STA (19:44)
[2021-02-26] MEDS ORDERED: Multivit/Ca/Min/Fe/FA 1 TAB TABLET PO STA (19:46)
[2021-02-26] MEDS ORDERED: Folic Acid 1 MG, Thiamine (B-1) 100 MG in 0.9 % Sodium Chloride 50 ML IVPB STA (19:46)
[2021-02-26 20:07] LABS: Basophils # 0.1 K/mcL (0.0-0.2); Basophils % 0.7 %; Eosinophils % 0.4 %; Hematocrit 46.7 % (37.5-50.1); Hemoglobin 15.5 g/dL (12.9-16.9); Immature Granulocytes % 0.3 % (0-4); Lymphocytes % 39.5 %; Mean Corpuscular HGB Conc 33.2 g/dL (31.6-35.5); Mean Corpuscular Hemoglobin 31.6 pg (28.0-33.3); Mean Corpuscular Volume 95.1 fL (83.0-100.0); Mean Platelet Volume 9.2 fL (9.4-12.4); Monocytes # 1.1 K/mcL (0.0-1.3); Monocytes % 14.9 %; Neutrophils # 3.3 K/mcL (1.6-8.9); Platelet Count 133 K/mcL (140-400); Red Blood Count 4.91 M/mcL (4.19-5.50); Red Cell Distribution Width 13.5 % (11.5-14.5); Segmented Neutrophils % 44.2 %; White Blood Count 7.5 K/mcL (4.3-11.1)
[2021-02-26 20:16] LABS: Prothrombin Time 11.6 Seconds (9.4-12.1)
[2021-02-26] MEDS ORDERED: *HR* Adenosine 6 MG/2 ML VIAL IVP ONE ×2 (20:57→20:59)
[2021-02-26] MEDS ORDERED: *HR* Adenosine 6 MG/2 ML SYRINGE IVP ONE (20:57)
[2021-02-26 20:58] LABS: Alanine Aminotransferase 177 Units/L (7-52); Albumin 4.4 g/dL (3.5-5.7); Albumin/Globulin Ratio 1.3 (1.1-2.2); Alkaline Phosphatase 72 Units/L (34-104); Aspartate Amino Transferase 266 Units/L (13-39); BUN/Creatinine Ratio 8 (6-26); Bilirubin,Total 1.7 mg/dL (0.3-1.0); Blood Urea Nitrogen 7 mg/dL (6-20); Calcium 9.1 mg/dL (8.6-10.3); Chloride 100 mEq/L (98-107); Ethanol 27 mg/dL (Less than 10); Globulin 3.4 g/dL (2.4-3.5); Glucose 117 mg/dL (70-105); Lipase 72 Units/L (11-82); Magnesium 1.9 mg/dL (1.6-2.6); Osmolality,Calculated 293 (280-300); Phosphorous 4.6 mg/dL (2.7-4.5); Potassium 3.3 mEq/L (3.5-5.1); Sodium 142 mEq/L (136-145); Total Protein 7.8 g/dL (6.4-8.9); eGFR For African Americans > 60 (> 60); eGFR For Non-African Americans > 60 (> 60)
[2021-02-26] MEDS ORDERED: *HR* Adenosine 6 MG/2 ML SYRINGE IVP STA (21:01)
[2021-02-26] MEDS ORDERED: Ringers Solution, Lactated 1,000 ML IVC ONE (21:06)
[2021-02-26] MEDS ORDERED: *HR* LORazepam 2 MG/ML VIAL IVP PRN ×3 (21:23)
[2021-02-26 21:24] LABS: VBG HCO3 22 mEq/L (21-27); VBG PCO2 39 mmHg (41-51); VBG PH 7.37 pH Units (7.32-7.42); VBG PO2 177 mmHg (25-50)
[2021-02-26] MEDS ORDERED: diazePAM 10 MG/2 ML SYRINGE IVP PRN ×5 (22:05)
[2021-02-26] MEDS ORDERED: Naloxone 0.4 MG/ML INJ IVP PRN (22:07)
[2021-02-26] MEDS ORDERED: Ondansetron 4 MG/2 ML VIAL IVP PRN (22:07)
[2021-02-26] MEDS ORDERED: 0.9 % Sodium Chloride 1,000 ML IVC SCH (22:15)
[2021-02-26] MEDS ORDERED: Tetracaine/Benzocaine/Butamben 1 SPRAY AEROSOL ONE (22:54)
[2021-02-26] MEDS ORDERED: Tetracaine/Benzocaine/Butamben 1 SPRAY AEROSOL MM ONE (22:57)
[2021-02-26 23:28] LABS: Carbon Dioxide 10 mEq/L (23-29)
[2021-02-26] MEDS ORDERED: Isovue-370 500 ML BOTTLE IVP ONE (23:45)
[2021-02-26 23:46] LABS: Bilirubin,Urine Negative (Negative); Blood,Urine Trace (Negative); Clarity,Urine Clear (Clear); Color,Urine Light-Yellow (Yellow); Glucose,Urine (UA) Normal (Normal); Hyaline Casts,Urine Few per lpf (None Seen); Ketones,Urine Trace mg/dL (Negative); Leukocyte Esterase,Urine Negative (Negative); Nitrite,Urine Negative (Negative); PH,Urine 6.5 pH Units (5.0-8.0); Protein,Urine Trace mg/dL (Neg-Trace); RBC,Urine 0-3 per hpf (0-3); Specific Gravity,Urine 1.011 (1.010-1.025); Urobilinogen,Urine Normal (Normal); WBC,Urine 0-3 per hpf (0-3)
[2021-02-26 23:55] LABS: Amphetamine Screen,Urine Negative ng/mL (Cutoff=1000); Barbiturate Screen,Urine Negative ng/mL (Cutoff=200); Benzodiazepines Screen,Urine Negative ng/mL (Cutoff=200); Cannabinoid Screen,Urine Negative ng/mL (Cutoff = 50); Cocaine Screen,Urine Negative ng/mL (Cutoff= 300); Opiate Screen,Urine Negative ng/mL (Cutoff=300); Phencyclidine Screen,Urine Negative ng/mL (Cutoff=25)
[2021-02-27] MEDS ORDERED: Potassium Chloride 20 MEQ, Lidocaine 1% 2 ML in 0.9 % Sodium Chloride 250 ML IVPB ONE (02:21)
[2021-02-27 02:51] LABS: Red Cell Distribution Width 13.5 % (11.5-14.5)
[2021-02-27 02:53] LABS: Hematocrit 38.2 % (37.5-50.1); Hemoglobin 12.9 g/dL (12.9-16.9); Immature Platelets 1.6 % (1.1-6.1); Mean Corpuscular HGB Conc 33.8 g/dL (31.6-35.5); Mean Corpuscular Volume 94.8 fL (83.0-100.0); Mean Platelet Volume 9.2 fL (9.4-12.4); Red Blood Count 4.03 M/mcL (4.19-5.50); White Blood Count 4.6 K/mcL (4.3-11.1)
[2021-02-27 03:11] LABS: BUN/Creatinine Ratio 14 (6-26); Blood Urea Nitrogen 5 mg/dL (6-20); Calcium 5.3 mg/dL (8.6-10.3); Carbon Dioxide 18 mEq/L (23-29); Chloride 119 mEq/L (98-107); Glucose 70 mg/dL (70-105); Magnesium 1.2 mg/dL (1.6-2.6); Osmolality,Calculated 294 (280-300); Potassium 2.7 mEq/L (3.5-5.1); Sodium 144 mEq/L (136-145); eGFR For African Americans > 60 (> 60); eGFR For Non-African Americans > 60 (> 60)
[2021-02-27] MEDS ORDERED: Calcium Gluconate 1gm/50mL 1 GM/50 ML BAG IVPB ONE (06:08)
[2021-02-27] MEDS ORDERED: Potassium Chloride Elixir 20 MEQ/15 ML UDC PO ONE (06:09)
[2021-02-27] MEDS ORDERED: Magnesium Sulfate 1 GM/102 ML PIGGYBACK IVPB ONE (06:12)
[2021-02-27] MEDS ORDERED: diazePAM 10 MG/2 ML SYRINGE IVP PRN ×6 (07:19→18:26)
[2021-02-27] MEDS ORDERED: Ringers Solution, Lactated 1,000 ML IVC SCH (07:30)
[2021-02-27] MEDS ORDERED: *HR* LORazepam 2 MG/ML VIAL IVP PRN ×2 (07:36→18:26)
[2021-02-27] MEDS: Calcium Gluconate 1gm/50mL 1 GM/50 ML BAG IVPB SCH ×3 (07:55→11:26)
[2021-02-27] MEDS ORDERED: Dexmedetomidine HCl 400 MCG/100 ML MLS IVC SCH ×2 (10:00→18:26)
[2021-02-27 11:11] LABS: VBG Ionized Calcium 1.16 mmol/L (1.15-1.35)
[2021-02-27 11:38] LABS: BUN/Creatinine Ratio 12 (6-26); Blood Urea Nitrogen 8 mg/dL (6-20); Calcium 9.2 mg/dL (8.6-10.3); Carbon Dioxide 25 mEq/L (23-29); Chloride 105 mEq/L (98-107); Glucose 126 mg/dL (70-105); Magnesium 3.5 mg/dL (1.6-2.6); Osmolality,Calculated 286 (280-300); Potassium 4.1 mEq/L (3.5-5.1); Sodium 138 mEq/L (136-145); eGFR For African Americans > 60 (> 60); eGFR For Non-African Americans > 60 (> 60)
[2021-02-27 15:07] LABS: VBG Ionized Calcium 1.19 mmol/L (1.15-1.35)
[2021-02-27 15:27] LABS: BUN/Creatinine Ratio 10 (6-26); Blood Urea Nitrogen 7 mg/dL (6-20); Calcium 9.1 mg/dL (8.6-10.3); Carbon Dioxide 26 mEq/L (23-29); Chloride 105 mEq/L (98-107); Glucose 146 mg/dL (70-105); Osmolality,Calculated 289 (280-300); Potassium 3.9 mEq/L (3.5-5.1); Sodium 139 mEq/L (136-145); eGFR For African Americans > 60 (> 60); eGFR For Non-African Americans > 60 (> 60)
[2021-02-27 15:28] LABS: Magnesium 1.9 mg/dL (1.6-2.6); Phosphorous 4.7 mg/dL (2.7-4.5)
[2021-02-27] MEDS ORDERED: Thiamine (B-1) 100 MG, Folic Acid 1 MG, MVI, adult with vitamin K 10 ML in 0.9 % Sodi... IVPB SCH (18:00)
[2021-02-27] MEDS ORDERED: Naloxone 0.4 MG/ML INJ IVP PRN (18:26)
[2021-02-27] MEDS ORDERED: Ondansetron 4 MG/2 ML VIAL IVP PRN (18:26)
[2021-02-27] MEDS: diazePAM 10 MG/2 ML SYRINGE IVP PRN (20:42)
[2021-02-27] MEDS ORDERED: Topiramate 100 MG TABLET PO SCH (21:00)
[2021-02-28 05:19] VITALS: BP 123/83; PULSE 67; TEMP 98.2; O2SAT 96
[2021-02-28 05:54] LABS: Eosinophils % 0.4 %; Hemoglobin 12.9 g/dL (12.9-16.9)
[2021-02-28 05:56] LABS: Basophils % 0.4 %; Hematocrit 37.8 % (37.5-50.1); Immature Granulocytes % 0.4 % (0-4); Immature Platelets 3.3 % (1.1-6.1); Lymphocytes % 39.4 %; Mean Corpuscular HGB Conc 34.1 g/dL (31.6-35.5); Mean Corpuscular Hemoglobin 32.2 pg (28.0-33.3); Mean Corpuscular Volume 94.3 fL (83.0-100.0); Monocytes # 0.5 K/mcL (0.0-1.3); Monocytes % 9.6 %; Neutrophils # 2.5 K/mcL (1.6-8.9); Red Blood Count 4.01 M/mcL (4.19-5.50); Red Cell Distribution Width 13.4 % (11.5-14.5); Segmented Neutrophils % 49.8 %
[2021-02-28 05:57] LABS: Platelet Count 76 K/mcL (140-400)
[2021-02-28 06:14] LABS: Alanine Aminotransferase 85 Units/L (7-52); Albumin 3.3 g/dL (3.5-5.7); Albumin/Globulin Ratio 1.4 (1.1-2.2); Alkaline Phosphatase 48 Units/L (34-104); Aspartate Amino Transferase 102 Units/L (13-39); BUN/Creatinine Ratio 11 (6-26); Bilirubin,Direct 0.3 mg/dL (0.0-0.2); Bilirubin,Indirect 1.6 mg/dL (0.0-1.0); Bilirubin,Total 1.9 mg/dL (0.3-1.0); Blood Urea Nitrogen 8 mg/dL (6-20); Carbon Dioxide 27 mEq/L (23-29); Chloride 110 mEq/L (98-107); Globulin 2.3 g/dL (2.4-3.5); Glucose 92 mg/dL (70-105); Magnesium 1.9 mg/dL (1.6-2.6); Osmolality,Calculated 292 (280-300); Potassium 3.4 mEq/L (3.5-5.1); Sodium 142 mEq/L (136-145); Total Protein 5.6 g/dL (6.4-8.9); eGFR For African Americans > 60 (> 60); eGFR For Non-African Americans > 60 (> 60)
[2021-02-28] MEDS: diazePAM 10 MG/2 ML SYRINGE IVP PRN (06:23)
[2021-02-28] MEDS ORDERED: FLUoxetine 20 MG CAPSULE PO SCH (09:00)
[2021-02-28] MEDS ORDERED: Topiramate 25 MG TABLET PO SCH (09:00)
[2021-02-28] MEDS ORDERED: Thiamine (B-1) 100 MG, Folic Acid 1 MG, MVI, adult with vitamin K 10 ML in 0.9 % Sodi... IVPB SCH (18:00)
== END 2021-02-28 13:33 | disposition home or self-care (01) ==
LOC: 3ANU 19:40 → EMEROOARM 19:40 → SUATTDRO 22:03 → CDU 02-27 02:47 → 2NNU 02-27 04:29 → 2NENU 02-28 00:22
PROVIDERS: ADMIT Internal Medicine; ATTEND Internal Medicine

== ENCOUNTER 2021-05-10 10:17 | Inpatient (IN) ==
[2021-05-10] MEDS ORDERED: Thiamine (B-1) 100 MG in 0.9 % Sodium Chloride 50 ML IVPB STA (10:54)
[2021-05-10] MEDS ORDERED: 0.9 % Sodium Chloride 1,000 ML IV ONE (10:57)
[2021-05-10 11:14] LABS: Basophils % 0.9 %; Eosinophils % 0.6 %; Hematocrit 42.7 % (37.5-50.1); Hemoglobin 14.9 g/dL (12.9-16.9); Immature Granulocytes % 0.3 % (0-4); Lymphocytes # 0.7 K/mcL (0.6-4.6); Lymphocytes % 22.3 %; Mean Corpuscular HGB Conc 34.9 g/dL (31.6-35.5); Mean Corpuscular Hemoglobin 32.3 pg (28.0-33.3); Mean Corpuscular Volume 92.6 fL (83.0-100.0); Mean Platelet Volume 9.4 fL (9.4-12.4); Monocytes # 0.4 K/mcL (0.0-1.3); Monocytes % 12.8 %; Neutrophils # 2.1 K/mcL (1.6-8.9); Platelet Count 105 K/mcL (140-400); Red Blood Count 4.61 M/mcL (4.19-5.50); Red Cell Distribution Width 13.2 % (11.5-14.5); Segmented Neutrophils % 63.1 %; White Blood Count 3.3 K/mcL (4.3-11.1)
[2021-05-10 11:35] LABS: Alanine Aminotransferase 200 Units/L (7-52); Albumin 4.3 g/dL (3.5-5.7); Albumin/Globulin Ratio 1.4 (1.1-2.2); Alkaline Phosphatase 68 Units/L (34-104); Aspartate Amino Transferase 391 Units/L (13-39); BUN/Creatinine Ratio 10 (6-26); Bilirubin,Total 1.1 mg/dL (0.3-1.0); Blood Urea Nitrogen 8 mg/dL (6-20); Calcium 9.1 mg/dL (8.6-10.3); Carbon Dioxide 24 mEq/L (23-29); Chloride 96 mEq/L (98-107); Creatine Kinase 644 Units/L (30-223); Ethanol 227 mg/dL (Less than 10); Glucose 108 mg/dL (70-105); Lipase 61 Units/L (11-82); Magnesium 1.7 mg/dL (1.6-2.6); Osmolality,Calculated 291 (280-300); Potassium 4.1 mEq/L (3.5-5.1); Sodium 141 mEq/L (136-145); Total Protein 7.3 g/dL (6.4-8.9); eGFR For African Americans > 60 (> 60); eGFR For Non-African Americans > 60 (> 60)
[2021-05-10 11:46] LABS: Thyroid Stimulating Hormone 2.278 mcIU/mL (0.340-5.600)
[2021-05-10 11:49] LABS: Bilirubin,Urine Negative (Negative); Blood,Urine Small (Negative); Clarity,Urine Clear (Clear); Color,Urine Yellow (Yellow); Glucose,Urine (UA) Normal (Normal); Granular Casts,Urine Few per lpf (None Seen); Hyaline Casts,Urine Many per lpf (None Seen); Ketones,Urine Trace mg/dL (Negative); Leukocyte Esterase,Urine Negative (Negative); Mucus,Urine Few per lpf (None-Few); Nitrite,Urine Negative (Negative); Protein,Urine 200 mg/dL (Neg-Trace); RBC,Urine 0-3 per hpf (0-3); Specific Gravity,Urine 1.021 (1.010-1.025); Squamous Epithelial Cell,Urine Few per hpf (None-Few); WBC,Urine 0-3 per hpf (0-3)
[2021-05-10 11:50] LABS: Amphetamine Screen,Urine Negative ng/mL (Cutoff=1000); Barbiturate Screen,Urine Negative ng/mL (Cutoff=200); Benzodiazepines Screen,Urine Negative ng/mL (Cutoff=200); Cannabinoid Screen,Urine Negative ng/mL (Cutoff = 50); Cocaine Screen,Urine Negative ng/mL (Cutoff= 300); Opiate Screen,Urine Negative ng/mL (Cutoff=300); Phencyclidine Screen,Urine Negative ng/mL (Cutoff=25)
[2021-05-10 12:50] LABS: Troponin I < 0.03 ng/mL (< 0.04)
[2021-05-10] MEDS ORDERED: *HR* LORazepam 2 MG/ML VIAL IVP PRN ×2 (13:33→13:53)
[2021-05-10] MEDS ORDERED: Naloxone 0.4 MG/ML INJ IVP PRN (13:50)
[2021-05-10] MEDS ORDERED: Ondansetron 4 MG/2 ML VIAL IVP PRN (13:50)
[2021-05-10] MEDS: *HR* LORazepam 2 MG/ML VIAL IVP PRN ×3 (15:30→21:58)
[2021-05-10] MEDS: *HR* Heparin 5,000 UNIT/ML VIAL SQ SCH (17:39)
[2021-05-10] MEDS: Thiamine (B-1) 100 MG, Folic Acid 1 MG, MVI, adult with vitamin K 10 ML in 0.9 % Sodi... IVPB SCH (17:41)
[2021-05-10] MEDS ORDERED: *HR* LORazepam 2 MG/ML VIAL IVP STA (17:46)
[2021-05-10] MEDS: traZODone 50 MG TABLET PO SCH (20:37)
[2021-05-10] MEDS: Melatonin 3 MG TABLET PO SCH (20:37)
[2021-05-10] MEDS: Topiramate 100 MG TABLET PO SCH (20:38)
[2021-05-11 02:19] LABS: Alanine Aminotransferase 157 Units/L (7-52); Albumin 3.7 g/dL (3.5-5.7); Albumin/Globulin Ratio 1.4 (1.1-2.2); Alkaline Phosphatase 60 Units/L (34-104); Aspartate Amino Transferase 267 Units/L (13-39); BUN/Creatinine Ratio 11 (6-26); Bilirubin,Direct 0.4 mg/dL (0.0-0.2); Bilirubin,Indirect 1.4 mg/dL (0.0-1.0); Bilirubin,Total 1.8 mg/dL (0.3-1.0); Blood Urea Nitrogen 8 mg/dL (6-20); Calcium 8.7 mg/dL (8.6-10.3); Carbon Dioxide 24 mEq/L (23-29); Chloride 104 mEq/L (98-107); Globulin 2.6 g/dL (2.4-3.5); Glucose 69 mg/dL (70-105); Magnesium 1.9 mg/dL (1.6-2.6); Osmolality,Calculated 295 (280-300); Phosphorous 3.6 mg/dL (2.7-4.5); Potassium 3.8 mEq/L (3.5-5.1); Sodium 144 mEq/L (136-145); Total Protein 6.3 g/dL (6.4-8.9); eGFR For African Americans > 60 (> 60); eGFR For Non-African Americans > 60 (> 60)
[2021-05-11] MEDS: *HR* Heparin 5,000 UNIT/ML VIAL SQ SCH ×2 (05:03→17:05)
[2021-05-11] MEDS: Topiramate 25 MG TABLET PO SCH (08:03)
[2021-05-11] MEDS: FLUoxetine 20 MG CAPSULE PO SCH (08:04)
[2021-05-11] MEDS: amLODIPine 5 MG TABLET PO SCH (08:05)
[2021-05-11] MEDS: *HR* LORazepam 2 MG/ML VIAL IVP PRN ×3 (08:13→22:36)
[2021-05-11] MEDS: Thiamine (B-1) 100 MG, Folic Acid 1 MG, MVI, adult with vitamin K 10 ML in 0.9 % Sodi... IVPB SCH (17:04)
[2021-05-11] MEDS: lisinopriL 20 MG TABLET PO SCH (17:05)
[2021-05-11] MEDS: Melatonin 3 MG TABLET PO SCH (21:04)
[2021-05-11] MEDS: Baclofen 10 MG TABLET PO SCH (21:05)
[2021-05-11] MEDS: traZODone 50 MG TABLET PO SCH (21:05)
[2021-05-11] MEDS: Topiramate 100 MG TABLET PO SCH (21:06)
[2021-05-12] MEDS: *HR* Heparin 5,000 UNIT/ML VIAL SQ SCH ×2 (05:43→17:34)
[2021-05-12] MEDS: amLODIPine 5 MG TABLET PO SCH (07:58)
[2021-05-12] MEDS: lisinopriL 20 MG TABLET PO SCH (07:58)
[2021-05-12] MEDS: Topiramate 25 MG TABLET PO SCH (07:59)
[2021-05-12] MEDS: FLUoxetine 20 MG CAPSULE PO SCH (07:59)
[2021-05-12] MEDS: Baclofen 10 MG TABLET PO SCH ×2 (07:59→23:22)
[2021-05-12] MEDS: *HR* LORazepam 2 MG/ML VIAL IVP PRN ×3 (08:15→17:33)
[2021-05-12] MEDS: Folic Acid 1 MG TABLET PO SCH (09:58)
[2021-05-12] MEDS: Thiamine (B-1) 100 MG TABLET PO SCH (09:58)
[2021-05-12] MEDS: Thiamine (B-1) 100 MG, Folic Acid 1 MG, MVI, adult with vitamin K 10 ML in 0.9 % Sodi... IVPB SCH (17:47)
[2021-05-12 18:16] LABS: Alanine Aminotransferase 115 Units/L (7-52); Albumin 3.8 g/dL (3.5-5.7); Albumin/Globulin Ratio 1.3 (1.1-2.2); Alkaline Phosphatase 65 Units/L (34-104); Aspartate Amino Transferase 134 Units/L (13-39); BUN/Creatinine Ratio 15 (6-26); Bilirubin,Direct 0.4 mg/dL (0.0-0.2); Bilirubin,Indirect 1.2 mg/dL (0.0-1.0); Bilirubin,Total 1.6 mg/dL (0.3-1.0); Blood Urea Nitrogen 14 mg/dL (6-20); Calcium 9.8 mg/dL (8.6-10.3); Carbon Dioxide 26 mEq/L (23-29); Chloride 104 mEq/L (98-107); Glucose 107 mg/dL (70-105); Osmolality,Calculated 293 (280-300); Sodium 141 mEq/L (136-145); Total Protein 6.8 g/dL (6.4-8.9); eGFR For African Americans > 60 (> 60); eGFR For Non-African Americans > 60 (> 60)
[2021-05-12] MEDS: Topiramate 100 MG TABLET PO SCH (23:22)
[2021-05-12] MEDS: traZODone 50 MG TABLET PO SCH (23:22)
[2021-05-12] MEDS: Melatonin 3 MG TABLET PO SCH (23:23)
[2021-05-13] MEDS: *HR* Heparin 5,000 UNIT/ML VIAL SQ SCH (05:25)
[2021-05-13] MEDS: *HR* LORazepam 2 MG/ML VIAL IVP PRN ×2 (06:01→14:09)
[2021-05-13 07:24] LABS: Magnesium 1.7 mg/dL (1.6-2.6); Phosphorous 5.6 mg/dL (2.7-4.5)
[2021-05-13 07:54] LABS: Hepatitis B Surface Antigen Nonreactive (Nonreactive)
[2021-05-13 08:23] LABS: Hepatitis B Core IgM Nonreactive (Nonreactive)
[2021-05-13 08:24] LABS: Hepatitis A Antibody IgM Nonreactive (Nonreactive); Hepatitis C Virus Antibody Nonreactive (Nonreactive)
[2021-05-13] MEDS: lisinopriL 20 MG TABLET PO SCH (09:45)
[2021-05-13] MEDS: amLODIPine 5 MG TABLET PO SCH (09:45)
[2021-05-13] MEDS: Topiramate 25 MG TABLET PO SCH (09:51)
[2021-05-13] MEDS: Thiamine (B-1) 100 MG TABLET PO SCH (09:51)
[2021-05-13] MEDS: Baclofen 10 MG TABLET PO SCH (09:51)
[2021-05-13] MEDS: Folic Acid 1 MG TABLET PO SCH (09:51)
[2021-05-13] MEDS: FLUoxetine 20 MG CAPSULE PO SCH (09:51)
[2021-05-13 11:15] VITALS: BP 120/72
[2021-05-13 15:09] LABS: Adenovirus Not Detected (Not Detect); Bordetella Pertussis Not Detected (Not Detect); Chlamydophila pneumoniae Not Detected (Not Detect); Coronavirus 229E Not Detected (Not Detect); Coronavirus HKU1 Not Detected (Not Detect); Coronavirus NL63 Not Detected (Not Detect); Coronavirus OC43 Not Detected (Not Detect); Human Metapneumovirus Not Detected (Not Detect); Human Rhinovirus/Enterovirus Not Detected (Not Detect); Influenza A Subtype 2009 H1 Not Detected (Not Detect); Influenza B Not Detected (Not Detect); Mycoplasma pneumoniae Not Detected (Not Detect); Parainfluenza Virus 1 Not Detected (Not Detect); Parainfluenza Virus 2 Not Detected (Not Detect); Parainfluenza Virus 3 Not Detected (Not Detect); Parainfluenza Virus 4 Not Detected (Not Detect); Respiratory Syncytial Virus Not Detected (Not Detect); SARS-CoV-2 Not Detected (Not Detect)
== END 2021-05-13 16:45 | DRG 897 ==
LOC: EMEROOARM 10:17 → 3BNU 10:17 → SUATTDRO 13:48 → 3BNU 14:33 → SUATTDRO 05-12 13:06
PROVIDERS: ADMIT Internal Medicine; ATTEND Internal Medicine